=== PATIENT | female | born 2000 | race Caucasian/White ===

== ENCOUNTER 2019-03-09 21:27 | Emergency (ER) | payer BC, OTHER ==
[~2019-03-09] VITALS: Ht 165.1 cm; Wt 55.4 kg
[2019-03-09] MEDS ORDERED: PROPOFOL 10 MG/ML, 20ML ONE ×2 (21:59→22:21)
[2019-03-09] MEDS ORDERED: PROPOFOL 10 MG/ML, 20ML IVPush ONE (22:00)
--- NOTE | 2019-03-09 22:09 | NUR ---
Pt transferred to T2 for procedural sedation. IV access obtained and pt prepped for relocation of bilat jaw dislocation. Monitors in place. See sedation charting.
--- NOTE | 2019-03-09 22:25 | NUR ---
ERP, Dr Hardin administered Propofol at bedside. 190mg total
--- NOTE | 2019-03-09 22:30 | NUR ---
procedure complete. Will continue to monitor pt until at baseline. Pt very drowsy with even and unlabored resp, vss, moving all extremities but does not open eyes to verbal and not answering questions at this time. SO at bedside and POC explained.
--- NOTE | 2019-03-09 22:35 | NUR ---
Pt awake but drowsy. Answering questions appropriately. Moving all extremities and obeying commands. VSS. Will continue to monitor. Jaw remains in place and dressing placed per ERP requests.
--- NOTE | 2019-03-09 22:47 | NUR ---
ERP at bedside to recheck and discuss D/C instructions.
--- NOTE | 2019-03-09 23:04 | NUR ---
Pt attempting PO challenge. Pt to baseline LOC. To be d/c home with friend at bedside.
[2019-03-09 23:17] VITALS: BP 102/75
== END 2019-03-09 23:21 | disposition home or self-care (01) ==
LOC: ED 23:15
DX: S03.00XA Dislocation of jaw, unspecified side, initial encounter (principal); X58.XXXA Exposure to other specified factors, initial encounter; Y93.89 Activity, other specified; Y92.89 Other specified places as the place of occurrence of the external cause; Y99.8 Other external cause status
CPT/HCPCS: 21480; 99152